=== PATIENT | female | born 1980 | race Caucasian/White ===

== ENCOUNTER 2025-08-15 01:27 | Emergency (ER) | payer SELFPAY ==
[2025-08-15] VITALS (9 sets, daily range): BP systolic 111–156; BP diastolic 63–98; PULSE 69–104; RESP 11–20; TEMP 36.4–37; O2SAT 96–100
--- NOTE | ~2025-08-15 | CT_ITS ---
CT abdomen pelvis w con Clinical History: biliary colic vs lipase mildly elev;epigast pain . Comparison: None Technique: Axial images lung bases to symphysis pubis 100 mL Omnipaque 350 Coronal, sagittal reformats CT images acquired with automatic exposure control for dose reduction DLP: 552 mGy-cm Findings: Lung bases: Clear. Visualized heart and pericardium: Unremarkable. Liver: Steatosis. Small hypodense focus posterior segment 2, too small to characterize. Gallbladder: Mild wall thickening. Spleen: Unremarkable. Pancreas: Ill-defined hypodense focus within head, axial series 3 image 62. Adrenal glands: Unremarkable. Kidneys: Right kidney- No hydronephrosis. No renal stones. Left kidney- No hydronephrosis. No renal stones. Small cyst. Distal esophagus/stomach: Mild distal esophageal wall thickening/esophagitis. Small bowel loops: Normal caliber and wall thickness. Colon: A few short segments of apparent wall thickening likely merely contraction. Normal RLQ appendix. Nodes: No enlarged nodes. Peritoneum: No ascites. No free air. Urinary bladder: Unremarkable. Uterus: IUD. Adnexa: No masses. Bones: No acute bony abnormality. Soft tissues: Unremarkable. Aorta: No aneurysm or dissection. IVC: Unremarkable. Main portal vein/SMV/splenic vein: Patent. IMPRESSION: 1. Small pancreatic focus likely artifact but recommend CT or MRI pancreas protocol. 2. Mild nonspecific gallbladder wall thickening. 3. Hepatic steatosis. Tiny hypodense lesion too small to characterize, which can be better evaluated on scan recommended above. 4. No acute inflammatory process. Reviewed, dictated and finalized at location R. ADMINISTRATOR IMPRESSION: 1. Small pancreatic focus likely artifact but recommend CT or MRI pancreas pro tocol. 2. Mild nonspecific gallbladder wall thickening. 3. Hepatic steatosis. Tiny hypodense lesion too small to characterize, which c an be better evaluated on scan recommended above. 4. No acute inflammatory process.
[2025-08-15 02:44] LABS: BEDSIDEPREGUCG Negative (Negative)
[2025-08-15 02:51] LABS: Hematocrit 42.5 % (37.0-47.0); Hemoglobin 14.1 g/dL (12.0-15.0); Immature Granulocyte Percent A 0.2 % (0-0.5); Lymphocytes Absolute Auto 2.59 K/mm3 (0.9-3.2); Mean Corpuscular HGB Conc 33.2 g/dl (32-36); Mean Corpuscular Hemoglobin 30.0 pg (26-34); Mean Corpuscular Volume 90.4 fl (80-100); Nucleated Red Blood Cells Absolute Auto 0.000 K/mm3 (0.0-0.012); Nucleated Red Blood Cells Perc 0.0 % (0.0-0.2); Platelet Count Result 339 k/mm3 (150-375); Red Blood Count 4.70 M/mm3 (4.2-5.4); White Blood Count 10.1 K/mm3 (4.5-10.0)
[2025-08-15 03:02] LABS: Add Urine Microscopic? YES; Appearance Urine Turbid (Clear); Glucose Urine UA Negative (Negative); Leukocyte Esterase Ur 2+ LEU/UL (Negative); Need Manual Microscopic Reviewed; Nitrate Urine Negative (Negative); Non Pathogenic Casts 0-2; Specific Grav Ur 1.017 (1.001-1.035)
[2025-08-15 03:03] LABS: Alanine Aminotransferase 20 U/L (6-35); Albumin Level 4.1 g/dL (3.5-5.1); Alkaline Phosphatase 81 U/L (38-126); Anion Gap 7 mmol/L (4-12); Aspartate Amino Transferase 22 U/L (14-36); Bilirubin,Total 0.3 mg/dL (0.2-1.3); Blood Urea Nitrogen 6 mg/dL (7-17); Calcium 9.1 mg/dL (8.4-10.2); Carbon Dioxide 26 mmol/L (22-30); Chloride 102 mmol/L (98-107); Estimated CRCL calculation 104 ml/min; Estimated Glomerular Filt Rate > 60; Glucose 125 mg/dL (65-110); Lipase 370 U/L (23-300); Potassium 4.1 mmol/L (3.4-5.0); Sodium 135 mmol/L (137-145); Total Protein 7.3 g/dL (6.3-8.2)
--- OUTSIDE RECORDS SUMMARY | 2025-08-15 03:09 | XMS_ITS | Clinical Summary ---
Author Organization [facility] Address [address] [place] [address] Care Team Providers Care Check And Transfer Beader Name Role Phone Kwasi Townsend DO Primary Care Provider [phone] Source Comments [facility],non-owned Affiliates and Associated Physician Practices is amultiple site organization consisting of ambulatory clinics and hospital sitesin [place], [place], [place] and [place]. This disclosure is being madepursuant to the Care Everywhere program and may not contain all information available regarding this patient. Last updated 18.[facility] Allergies No known active allergies Medications * Be aware that medications may not be up to date on this document. Alwaysverify current medications with the patient. No known medications Active Problems No known active problems Social History Tobacco Use Types Packs/Day Years Used Date Smoking Tobacco: Every Day Smokeless Tobacco: Never Comments No Sex and Gender Information Value Date Recorded Sex Assigned at Not on file Legal Sex Female 1:25 PM CDT Gender Identity Not on file Sexual Orientation Not on file Last Filed Vital Signs Vital Sign Reading Time Taken Comments Blood Pressure 120/72 08/02/2017 4:08 PM CDT Pulse 95 08/02/2017 4:08 PM CDT Temperature 36.6 C (97.8 F) 08/02/2017 4:08 PM CDT Respiratory Rate 16 08/02/2017 4:08 PM CDT Oxygen Saturation - - Inhaled Oxygen Concentration - - Weight 68 kg (150 lb) 08/02/2017 4:08 PM CDT Height 162.6 cm (5' 4) 08/02/2017 4:08 PM CDT Body Mass Index 25.75 08/02/2017 4:08 PM CDT Plan of Treatment Health Maintenance Due Date Last Done Comments LIPID TESTING 1981 MAMMOGRAM 1981 HIV SCREENING 1996 HEPATITIS C SCREENING 07/17/1999 DTAP/TDAP/TD VACCINES (1 - Tdap) 2000 HEPATITIS B VACCINE (1 of 3 - 19+ 3-dose series) 2000 HPV VACCINE (1 - 3-dose SCDM series) 2008 DEPRESSION SCREENING 10/02/2024 COVID-19 VACCINE (1 - 2023-2 5 season) 2025 INFLUENZA VACCINE (#1) 2025 ZOSTER VACCINE (1 of 2) 2031 HIB VACCINE Aged Out No longer eligi ble based on patient's age to complete this topic MENINGOCOCCAL (Group B) VACC INE SHARED DECISION-MAKING Aged Out No longer eligibl e based on patient's age to complete this topic MENINGOCOCCAL GROUPS A/C/Y/W VACCINE Aged Out No longer eligible b ased on patient's age to complete this topic PNEUMOCOCCAL VACCINE Aged Out No long er eligible based on patient's age to complete this topic Insurance [facility] Care Teams Check And Transfer Beader Relationship Specialty Start Date End Date Kwasi Townsend DO PCP - General Internal Medicine 08/02/17
--- NOTE | 2025-08-15 03:19 | ED.ABDPAIN ---
HPI - Abdominal Pain General Chief Complaint: Abdominal Pain Stated Complaint: abd pain Time Seen by Provider: 08/15/25 02:43 Source: patient Mode of arrival: ambulatory Limitations: no limitations History of Present Illness HPI narrative: Patient presents with report of burning epigastric pain that started a few hours ago. No nausea/vomiting/diarrhea. This has never happened before. No prior EGD. Does not follow with GI. No fevers/chills. No abdominal surgeries. Does not have a PCP. Radiates slightly upwards. No suprapubic pain or flank pain. MAYTE was Culvers. No dysuria, urgency, frequency, or hematuria. Related Data Allergies Allergy/AdvReac Type Severity Reaction Status Date / Time No Known Allergies Allergy Mild Verified 08/15/25 01:32 [facility] Past Medical History Medical History History of UTI Family History Family History (Updated 03/07/19 @ 12:02 by DOCTOR UNKNOWN) Grandparent Family history of cardiovascular disease Social History Social History Smoking status: Light tobacco smoker Alcohol intake: never Exam Narrative: GENERAL: Well-appearing, well-nourished, and in no acute distress. HEAD: Normocephalic, atraumatic. EYES: Non injected, non icteric ENT: Nares clear, no rhinorrhea or epistaxis. Gross auditory acuity intact. NECK: Supple. No meningismus. CHEST: Speaking in full sentences. No respiratory distress. HEART: Regular rate and rhythm. . ABDOMEN: Soft, nondistended. No rigidity or guarding. Not peritoneal. no TTP throughout. Thornton sign negative. EXTREMITIES: Normal range of motion. No lower extremity edema. SKIN: Warm, dry, no rash. NEURO: No focal deficits. Alert and oriented. Answering questions. Following commands. Normal speech without aphasia or dysarthria. PSYCH: Normal mood and affect. Course Vital Signs Vital signs: Vital Signs Temperature 98.6 F 08/15/25 01:30 Pulse Rate 104 H 08/15/25 01:30 Respiratory Rate 20 08/15/25 01:30 Blood Pressure 139/78 08/15/25 01:30 Pulse Oximetry 99 08/15/25 01:30 Oxygen Delivery Room Air 08/15/25 01:30 Temperature 97.6 F 08/15/25 02:41 Pulse Rate 75 08/15/25 08:14 Respiratory Rate 13 08/15/25 08:14 Blood Pressure 126/85 08/15/25 07:01 Pulse Oximetry 100 08/15/25 08:14 Oxygen Delivery Room Air 08/15/25 01:30 MDM - Abdominal Pain MDM Narrative Medical decision making narrative: Patient presents with burning epigastric abdominal pain for the past few hours. MAYTE Culvers. No N/V/d/ or F/C. In the emergency department she is afebrile with vital signs notable for mild tachycardia which resolved on repeat w/o intervention. Normal renal function. test negative. Lipase mildly elevated. Questionable radiation to back; will proceed with CT imaging. Morphine and omeprazole ordered. Abnormal urinalysis but she reports no dysuria, hematuria, urgency or frequency. Given this, will defer treating as she states she gets urinary tract infections but is otherwise asymptomatic. Urine culture ordered. There is a significant delay in CT interpretation. It is not performed overnight by stat read. I did contact in house radiology department after >1 hour with it not being read despite being one of the earlier scans performed. It does result and I did go to patient's bed to discuss the findings with her. Patient was not in the room. Her gown is off and on the stretcher. No evidence of IV in the room. RN Will follow protocols as necessary. Patient did not receive DC isntructions but they have been printed if she returns. Differential Diagnosis Differential diagnosis: Likely abdominal pain, constipation, diverticulitis, endometriosis, pancreatitis and other (gastritis; biliary disease; ) Lab Data Attestation: I reviewed the patient's lab results. Lab results narrative: CBC with very mild leukocytosis 08/15/25 02:39 08/15/25 02:39 Labs: Lab Results 08/15/25 08/15/25 08/15/25 Range/Units 02:00 02:39 02:41 WBC 10.1 H (4.5-10.0) K/mm3 RBC 4.70 (4.2-5.4) M/mm3 Hgb 14.1 (12.0-15.0) g/dL Hct 42.5 (37.0-47.0) % MCV 90.4 (80-100) fl MCH 30.0 (26-34) pg MCHC 33.2 (32-36) g/dl RDW 12.1 (11.5-14.5) % Plt Count 339 (150-375) k/mm3 MPV 9.7 (7.4-10.4) fl Immature Gran % (Auto) 0.2 (0-0.5) % Neut % (Auto) 60.9 (45.5-73.1) % Lymph % (Auto) 25.6 (18.3-44.2) % [place] % (Auto) 8.9 H (2.6-8.5) % Eos % (Auto) 3.3 (0-4.4) % Baso % (Auto) 1.1 (0.2-1.2) % Lymph # (Auto) 2.59 (0.9-3.2) K/mm3 [place] # (Auto) 0.9 H (0.1-0.6) K/mm3 Eos # (Auto) 0.3 (0-0.3) K/mm3 Baso # (Auto) 0.1 (0.0-0.1) K/mm3 Abs Immat Gran (auto) 0.02 (0.00-0.031) K/mm3 Absolute Neuts (auto) 6.2 (1.3-6.7) K/mm3 Absolute Nucleated RBC 0.000 (0.0-0.012) K/mm3 Nucleated RBC % 0.0 (0.0-0.2) % Sodium 135 L (137-145) mmol/L Potassium 4.1 (3.4-5.0) mmol/L Chloride 102 (98-107) mmol/L Carbon Dioxide 26 (22-30) mmol/L Anion Gap 7 (4-12) mmol/L BUN 6 L (7-17) mg/dL Creatinine 0.59 L (0.7-1.0) mg/dL Estim Creat Clear Calc 104 ml/min Estimated GFR > 60 (59 - ) Glucose 125 H (65-110) mg/dL Calcium 9.1 (8.4-10.2) mg/dL Total Bilirubin 0.3 (0.2-1.3) mg/dL AST 22 (14-36) U/L ALT 20 (6-35) U/L Alkaline Phosphatase 81 (38-126) U/L Total Protein 7.3 (6.3-8.2) g/dL Albumin 4.1 (3.5-5.1) g/dL Lipase 370 H (23-300) U/L Urine Color Yellow (Yellow) Urine Appearance Turbid H (Clear) Urine pH 6.0 (5.0-9.0) Ur Specific [place] 1.017 (1.001-1.035) Urine Protein Negative (Negative) mg/dL Urine Glucose (UA) Negative (Negative) mg/dL Urine Ketones Negative (Negative) mg/dL Ur Blood (Man) 2+ H (Negative) Urine Nitrate Negative (Negative) Urine Bilirubin Negative (Negative) Urine Urobilinogen 0.2 (<2.0) mg/dL Add Ur Microanalysis Reviewed Leukocyte Esterase Rfl 2+ H (Negative) IDA/UL Urine RBC 0-2 (0-2) /hpf Urine WBC 21-50 H (0-3) /hpf Ur Squamous Epith Cells Many H (Few) /hpf Urine Bacteria 4+ H /hpf Urine Casts 0-2 Urine Mucus Present /lpf POC Urine HCG, Qual Negative Negative (Negative) Imaging Data Radiologist's impression: ITS Impressions Abdomen/Pelvis CT 08/15/25 08:25 IMPRESSION: 1. Small pancreatic focus likely artifact but recommend CT or MRI pancreas protocol. 2. Mild nonspecific gallbladder wall thickening. 3. Hepatic steatosis. Tiny hypodense lesion too small to characterize, which can be better evaluated on scan recommended above. 4. No acute inflammatory process. Discharge Plan Discharge Clinical Impression: Epigastric abdominal pain, Abnormal urinalysis, Thickening of wall of gallbladder, Hepatic steatosis, Lesion of pancreas, Lesion of liver Patient Disposition: Home Condition: Stable Instructions: Antibiotic Form, Gastritis (DC), Biliary Colic (ED), Epigastric Pain (ED) Additional Instructions: Your symptoms sound consistent with gastritis although may also represent an episode of biliary colic. Trial diet modification and the prescribed medication. Follow up with your primary care physician. Small pancreatic focus likely artifact but recommend CT or MRI pancreas protocol. Tiny hypodense lesion in liver too small to characterize, which can be better evaluated on scan recommended above. Your PCP can help arrange this in the outpatient setting. Patient Language: Hungarian Prescriptions: New omeprazole 20 mg tablet,delayed release (DR/EC) 20 mg PO DAILY Qty: 14 0RF Follow-up/Referrals: Kwasi Townsend, DO [Primary Care Provider, Internal Medicine] Stand Alone Forms: Work/School Release IP Time of Disposition: 08:48
[2025-08-15] MEDS: MORPHINE SULFATE (*CRX) 4 MG/ML INJ IV PUSH (03:40)
[2025-08-15] MEDS: PANTOPRAZOLE 40 MG TABLET PO (03:41)
--- NOTE | 2025-08-15 03:43 | PC.NURSE ---
Pt taken to CT
[2025-08-15 05:29] LABS: BEDSIDEPREGUCG Negative (Negative)
--- NOTE | 2025-08-15 08:47 | PC.NURSE ---
this RN was discharging another patient and walked by room noting that this patient was not in the room anymore. BINTA Louis aware.
--- NOTE | 2025-08-15 09:09 | PC.NURSE ---
called patient listed number multiple times without success for discharge and to follow up for patient leaving without discharge. no answer and unable to leave [facility] [place].
== END 2025-08-15 08:30 | disposition home or self-care (01) ==
PROVIDERS: Emergency Provider Student in an Organized Health Care Education/Training Program; PCP Internal Medicine
DX: R10.13 Epigastric pain (principal); K76.0 Fatty (change of) liver, not elsewhere classified; K86.9 Disease of pancreas, unspecified; K76.9 Liver disease, unspecified; K82.9 Disease of gallbladder, unspecified; R82.998 Other abnormal findings in urine; F17.200 Nicotine dependence, unspecified, uncomplicated; Z87.440 Personal history of urinary (tract) infections
CPT/HCPCS: 36415; 74177; 80053; 81001; 81025; 83690; 85025; 87086; 96374; 99284; A9270; J2270; Q9967